=== PATIENT | male | born 1985 | race Caucasian/White ===

== ENCOUNTER 2018-01-26 18:57 | Emergency (ER) | payer OTHER ==
[2018-01-26] MEDS ORDERED: KETOROLAC 30 MG/1 ML SDV IM ONE (19:10)
--- NOTE | 2018-01-26 19:14 | EDPHY ---
H & P Stated Complaint: BACK PAIN LOWER LUMBAR AFTER BOX FELL ON HIM Time Seen by Provider: 01/26/18 19:03 HPI/ROS: CHIEF COMPLAINT: Low back pain HISTORY OF PRESENT ILLNESS: Patient is a 32-year-old man who was pushing a kevin at work and the top box began to fall off he reached over his head to catch it. He had immediate pain in his low back and thought that he heard a snap in his lower back. He states that he continue to work and finished his shift but it hurt gradually more throughout the day. He has not had any weakness or numbness. No paresthesias. No bowel or bladder abnormalities. He does state that the pain seems to radiate to both thighs anteriorly. He states that he has previous back pain from high school football. He drove himself here. REVIEW OF SYSTEMS: Constitutional: denies: chills, fever, recent illness, recent injury EENTM: denies: blurred vision, double vision, nose congestion Respiratory: denies: cough, shortness of breath Cardiac: denies: chest pain, irregular heart rate, lightheadedness, palpitations Gastrointestinal/Abdominal: denies: abdominal pain, diarrhea, nausea, vomiting, blood streaked stools Genitourinary: denies: dysuria, frequency, hematuria, pain Musculoskeletal: See HPI Skin: denies: lesions, rash, jaundice, bruising Neurological: denies: headache, numbness, paresthesia, tingling, dizziness, weakness Hematologic/Lymphatic: denies: blood clots, easy bleeding, easy bruising Immunologic/allergic: denies: HIV/AIDS, transplant EXAM: GENERAL: Well-appearing, well-nourished and in no acute distress. HEAD: Atraumatic, normocephalic. EYES: Pupils equal round and reactive to light, extraocular movements intact, sclera anicteric, conjunctiva are normal. ENT: TMs normal, nares patent, oropharynx clear without exudates. Moist mucous membranes. NECK: Normal range of motion, supple without lymphadenopathy or JVD. LUNGS: Breath sounds clear to auscultation bilaterally and equal. No wheezes rales or rhonchi. HEART: Regular rate and rhythm without murmurs, rubs or gallops. ABDOMEN: Soft, nontender, normoactive bowel sounds. No guarding, no rebound. No masses appreciated. BACK: No CVA tenderness, no spinal tenderness, step-offs or deformities EXTREMITIES: Low back pain, no tenderness step-offs or deformities. Pain on the left side greater than the right. NEUROLOGICAL: Cranial nerves II through XII grossly intact. Normal speech, normal gait. 5/5 strength, normal movement in all extremities, normal sensation , no weakness, normal reflexes PSYCH: Normal mood, normal affect. SKIN: Warm, dry, normal turgor, no visible rashes or lesions. Source: Patient Exam Limitations: No limitations - Personal History Current Tetanus/Diphtheria Vaccine: Yes Current Tetanus Diphtheria and Acellular Pertussis (TDAP): Yes - Medical/Surgical History Hx Asthma: No Hx Chronic Respiratory Disease: No Hx Diabetes: No Hx Cardiac Disease: No Hx Renal Disease: No Hx Cirrhosis: No Hx Alcoholism: No Hx HIV/AIDS: No Hx Splenectomy or Spleen Trauma: No Other PMH: BACK INJURY - Family History Significant Family History: No pertinent family hx - Social History Smoking Status: Heavy smoker Alcohol Use: Sober Drug Use: None Constitutional: Initial Vital Signs Temperature (C) 37.3 C 01/26/18 19:01 Heart Rate 112 H 01/26/18 19:01 Respiratory Rate 18 01/26/18 19:01 Blood Pressure 141/90 H 01/26/18 19:01 O2 Sat (%) 97 01/26/18 19:01 O2 Delivery Mode Room Air Allergies/Adverse Reactions: SHELL FISH Allergy (Uncoded 01/26/18 19:04) Home Medications: Medication Instructions Recorded Metaxalone [Skelaxin 800 mg (*)] 800 mg PO TID PRN #12 tab 01/26/18 oxyCODONE/APAP 5/325 [Percocet 1 - 2 tab PO Q4H PRN #10 tab 01/26/18 5/325 (*)] Medical Decision Making - Diagnostics Imaging Results: Imaging Impressions Lumbar Spine CT 01/26/18 19:11 Impression: 1. Disk bulges at L3-L4, L4-L5, and L5-S1 with associated spinal and neuroforaminal stenoses as detailed above. If symptoms worsen, additional imaging may be necessary. Findings discussed with Pj Thrasher M.D. at 20:21 hour, 01/26/2018. Imaging: Discussed imaging studies w/ will call order clerk Radiologist ED Course/Re-evaluation: 8:20 p.m. We discussed the CT results. We will treat conservatively at this point including pain medicine and muscle relaxants and physical therapy arranged by worker's Comp. If his symptoms are not improving in 4 weeks he will need referral to a extension service specialist in charge. Differential Diagnosis: Partial list of the Differential diagnosis considered include but were not limited to; low back pain, muscle strain, sciatica and although unlikely based on the history and physical exam, I also considered fracture, cord injury. I discussed these differential diagnoses and the plan with the patient as well as the usual and expected course. The patient understands that the diagnosis is provisional and that in medicine we are not always correct and that further workup is often warranted. Usual and customary warnings were given. All of the patient's questions were answered. The patient was instructed to return to the emergency department should the symptoms at all worsen or return, otherwise to followup with the physician as we discussed. - Data Points Medications Given: Discontinued Medications Diazepam (Valium 5 Mg Prepack#4) 1 btl TAKEHOME EDNOW ONE Stop: 01/26/18 20:29 Last Admin: 01/26/18 20:37 Dose: 1 btl Ketorolac Tromethamine (Toradol) 60 mg IM EDNOW ONE Stop: 01/26/18 19:11 Last Admin: 01/26/18 19:19 Dose: 60 mg Oxycodone/Acetaminophen (Percocet 5/325mg Prepack#4) 1 btl TAKEHOME EDNOW ONE Stop: 01/26/18 20:29 Last Admin: 01/26/18 20:36 Dose: 1 btl Departure - Departure Disposition: Home, Routine, Self-Care Clinical Impression: Acute lumbar back pain Qualifiers: Back pain laterality: bilateral Sciatica presence: without sciatica Qualified Code(s): M54.5 - Low back pain Condition: Fair Instructions: Oxycodone/Acetaminophen (By mouth), Diazepam (By mouth), Acute Low Back Pain (ED) Referrals: NONE *PRIMARY CARE P,. [Primary Care Provider] - As per Instructions Yan Davidson MD [Medical Doctor] - 2-3 days, if not improved Stand Alone Forms: Work Excuse Prescriptions: Metaxalone [Skelaxin 800 mg (*)] 800 mg PO TID PRN #12 tab PRN Reason: Spasms oxyCODONE/APAP 5/325 [Percocet 5/325 (*)] 1 - 2 tab PO Q4H PRN #10 tab PRN Reason: Pain, Severe
[2018-01-26] MEDS ORDERED: OXYCODONE/APAP 5/325MG PREPACK#4 BTL TAKEHOME ONE (20:28)
[2018-01-26] MEDS ORDERED: DIAZEPAM 5 MG PREPACK#4 BTL TAKEHOME ONE (20:28)
[2018-01-26 20:43] VITALS: BP 132/78
== END 2018-01-26 20:43 | disposition home or self-care (01) ==
LOC: CED 18:57
DX: S39.92XA Unspecified injury of lower back, initial encounter (principal); F17.200 Nicotine dependence, unspecified, uncomplicated; W20.8XXA Other cause of strike by thrown, projected or falling object, initial encounter; Y92.69 Other specified industrial and construction area as the place of occurrence of the external cause; Y99.0 Civilian activity done for income or pay; Y93.89 Activity, other specified
CPT/HCPCS: 72131-PO; J1885